=== PATIENT | female | born 2000 | race Caucasian/White ===

== ENCOUNTER 2025-01-17 19:09 | Emergency (ER) | payer OTHER ==
[~2025-01-17] VITALS: Ht 157.5 cm; Wt 86.4 kg
[2025-01-17 19:10] VITALS: BP 123/81; PULSE 68; RESP 18; TEMP 97.9; O2SAT 99
[2025-01-17] MEDS: LIDOCAINE 1% 10 ML VIAL ID ONE (23:21)
== END 2025-01-18 00:07 | disposition home or self-care (01) ==
LOC: EMS 19:13
DX: S61.211A Laceration without foreign body of left index finger without damage to nail, initial encounter (principal); W26.0XXA Contact with knife, initial encounter; Y93.89 Activity, other specified; Y92.89 Other specified places as the place of occurrence of the external cause; Y99.8 Other external cause status
CPT/HCPCS: 99282; 12001; J3490